=== PATIENT | female | born 1950 | race Caucasian/White ===

== ENCOUNTER 2023-01-28 10:55 | Emergency (ER) | payer MEDICARE, BC ==
[~2023-01-28] VITALS: Ht 149.9 cm; Wt 59.0 kg
[2023-01-28] MEDS ORDERED: METH4PAK PO (12:40)
[2023-01-28] MEDS ORDERED: AZIT1POW PO (12:40)
[2023-01-28 14:02] VITALS: BP 193/63
== END 2023-01-28 14:05 | disposition home or self-care (01) ==
LOC: ER 10:55
DX: R68.83 Chills (without fever) (principal); J01.90 Acute sinusitis, unspecified; J32.0 Chronic maxillary sinusitis; I16.0 Hypertensive urgency; E78.5 Hyperlipidemia, unspecified; Z98.890 Other specified postprocedural states
CPT/HCPCS: 70486; 71046